=== PATIENT | male | born 1955 | race Caucasian/White ===

== ENCOUNTER 2017-02-12 00:05 | Emergency (ER) | payer MEDICAID ==
[~2017-02-12] VITALS: Ht 162.6 cm; Wt 61.2 kg
[2017-02-12 00:07] VITALS: BP 148/90
--- NOTE | 2017-02-12 00:18 | NUR ---
PATIENT AMBULATED TO ER BED 6.
--- NOTE | 2017-02-12 00:20 | NUR ---
61Y/M PATIENT PRESENTS TO ED WITH C/O LT. ARM ABSCESS X 1 WK . PT STATES SPIDER BIT 1 WK, THEN REDNESS AND SWELLING, NO FEVER.; SKIN IS PINK/WARM/DRY, LT. UPPER ARM SWELLING AND REDNESS; AAOX4 WITH EVEN AND STEADY GAIT; LUNGS CLEAR BL; HR EVEN AND REGULAR; PT DENIES ANY FEVER, CP, SOB, OR COUGH AT THIS TIME; PATIENT STATES PAIN OF 0810 AT THIS TIME; VSS; PATIENT POSITIONED FOR COMFORT; HOB ELEVATED; BEDRAILS UP X2; BED DOWN. ER MD MADE AWARE OF PT STATUS.
--- NOTE | 2017-02-12 00:22 | NUR ---
Patient being evaluated by physician at bedside.
--- NOTE | 2017-02-12 00:22 | NUR ---
DR. DURAN PERFORMS I AND D AT BEDSIDE, 1% XYLOCAINE INJECT SUBCUT 5 ML TO LT. UPPER ARM, NDAR.
--- NOTE | 2017-02-12 00:50 | NUR ---
Patient discharged with v/s stable. Written and verbal after care instructions given and explained. Patient alert, oriented and verbalized understanding of instructions. Ambulatory with steady gait. All questions addressed prior to discharge. ID band removed. Patient advised to follow up with PMD. Rx of KEFLEX 500 MG, MOTRIN 600 MG, BATRIM DS 800/160MG given. Patient educated on indication of medication including possible reaction and side effects. Opportunity to ask questions provided and answered.
[2017-02-12 00:51] VITALS: BP 135/81
== END 2017-02-12 00:50 | disposition home or self-care (01) ==
LOC: MED 00:05
DX: L02.414 Cutaneous abscess of left upper limb (principal); F17.210 Nicotine dependence, cigarettes, uncomplicated
CPT/HCPCS: 99283

== ENCOUNTER 2019-07-12 19:44 | Emergency (ER) | payer MEDICAID ==
[~2019-07-12] VITALS: Ht 154.9 cm; Wt 64.4 kg
[2019-07-12 19:52] VITALS: BP 186/114
[2019-07-12] MEDS ORDERED: KETOROLAC 30 MG/ML VIAL IVP ONE (20:00)
[2019-07-12] MEDS ORDERED: METOPROLOL 5 MG/5 ML VIAL IVP ONE (20:00)
[2019-07-12 20:40] LABS: BASOPHILS % (AUTO) 0.9 % (0.0-2.0); EOSINOPHILS % (AUTO) 0.5 % (0.0-4.0); LYMPHOCYTES # (AUTO) 1.2 K/uL (2.0-11.5); MEAN CORPUSCULAR HEMOGLOBIN 28 pg (27-31); MEAN CORPUSCULAR HGB CONC 33 g/dL (33-37); MEAN CORPUSCULAR VOLUME 86.5 fL (80-94); MONOCYTES # (AUTO) 0.5 K/uL (0.8-1.0); MONOCYTES % (AUTO) 10.8 % (1.7-9.3); NEUTROPHILS # (AUTO) 2.8 K/uL (1.8-7.7); NEUTROPHILS % (AUTO) 61.8 % (42.2-75.2); PLATELET COUNT (AUTO) 227 K/uL (140-450); RED BLOOD CELL COUNT(AUTO) 4.62 MIL/uL (4.20-6.10); RED CELL DISTRIBUTION WIDTH 14.6 % (11.6-13.7); WHITE BLOOD COUNT (AUTO) 4.5 K/uL (4.8-10.8)
[2019-07-12 20:55] LABS: CARBON DIOXIDE 30.2 mmol/L (21-32); POTASSIUM 4.2 mmol/L (3.5-5.1)
[2019-07-12 21:01] LABS: ALBUMIN 3.6 g/dL (3.4-5.0); TOTAL BILIRUBIN 0.3 mg/dL (0.0-1.0)
[2019-07-12 21:54] VITALS: BP 179/87
== END 2019-07-12 22:44 | disposition home or self-care (01) ==
LOC: MED 19:44
DX: I10 Essential (primary) hypertension (principal); F17.210 Nicotine dependence, cigarettes, uncomplicated
CPT/HCPCS: 36415; 80053; 84484; 85025; 96374; 96375; 99283; J1885; J3490

== ENCOUNTER 2020-10-20 19:34 | Emergency (ER) | payer MEDICAID ==
[~2020-10-20] VITALS: Ht 165.1 cm; Wt 68.0 kg
[2020-10-20 20:10] VITALS: BP 185/92
--- NOTE | 2020-10-20 20:13 | NUR ---
TO LOBBY A/W BED AMBULATORY
[2020-10-20] MEDS ORDERED: LIDOCAINE 2% 1000 MG/50 ML VIAL INJ ONE (20:25)
[2020-10-20] MEDS ORDERED: CLONIDINE HYDROCHLORIDE 0.1 MG TAB PO ONE (21:05)
--- NOTE | 2020-10-20 23:00 | NUR ---
ERMD AT BEDSIDE PERFORMING I&D
[2020-10-20 23:45] VITALS: BP 169/92
--- NOTE | 2020-10-20 23:45 | NUR ---
Patient discharged with v/s stable. Written and verbal after care instructions given and explained. Patient alert, oriented and verbalized understanding of instructions. Ambulatory with steady gait. All questions addressed prior to discharge. ID band removed. Patient advised to follow up with PMD. Rx of BACTRIM, AMLODIPINE given. Patient educated on indication of medication including possible reaction and side effects. Opportunity to ask questions provided and answered.
== END 2020-10-20 23:45 | disposition home or self-care (01) ==
LOC: MED 19:34
DX: L02.413 Cutaneous abscess of right upper limb (principal); I10 Essential (primary) hypertension
CPT/HCPCS: 10060; 90471; 90715; 99283; J2001

== ENCOUNTER 2020-12-14 10:39 | Emergency (ER) | payer MEDICAID ==
[~2020-12-14] VITALS: Ht 160 cm; Wt 72.6 kg
[2020-12-14 10:46] VITALS: BP 180/94
--- NOTE | 2020-12-14 10:55 | NUR ---
PATIENT AMBULATED TO BED 8
--- NOTE | 2020-12-14 11:05 | NUR ---
64 YEAR OLD MALE PRESENTED TO ER FOR PRESCRIPTION REFILL; CURRENTLY SEEKING NEW PRIMARY PHYSICIAN. DENIES HEADACHE, CHEST PAIN, SOB. AO4, BREATHING EVEN AND UNLABORED, SKIN WARM AND DRY. BED IN LOWEST POSITION, LOCKED, X1 SIDERAIL UP. PMH - HTN NKA
--- NOTE | 2020-12-14 11:08 | NUR ---
BP 180/94, HR 63. ERMD AWARE.
[2020-12-14 11:36] VITALS: BP 180/94
--- NOTE | 2020-12-14 11:36 | NUR ---
Patient discharged with v/s stable. Written and verbal after care instructions ABOUT HYPERTENSION AND ED MEDICATION REFILL given and explained. Patient alert, oriented and verbalized understanding of instructions. Ambulatory with steady gait. All questions addressed prior to discharge. ID band removed. Patient advised to follow up with PMD. Rx of AMLODIPINE given. Patient educated on indication of medication including possible reaction and side effects. Opportunity to ask questions provided and answered.
== END 2020-12-14 11:36 | disposition home or self-care (01) ==
LOC: MED 10:39
DX: I10 Essential (primary) hypertension (principal); F17.210 Nicotine dependence, cigarettes, uncomplicated; F12.10 Cannabis abuse, uncomplicated; Z76.0 Encounter for issue of repeat prescription; Z71.6 Tobacco abuse counseling
CPT/HCPCS: 99281

== ENCOUNTER 2021-06-13 19:42 | Emergency (ER) | payer MEDICAID ==
[~2021-06-13] VITALS: Ht 162.6 cm; Wt 70.8 kg
[2021-06-13 20:06] VITALS: BP 160/101
--- NOTE | 2021-06-13 20:59 | NUR ---
AMBULATORY TO BED
--- NOTE | 2021-06-13 22:23 | NUR ---
65 YO/M BIB SELF W CO TINY ITCHY ORANGE DOTS THROUGHOUT SCALP X2DAYS. PATIENT DENIES ANY PAIN. SCRATCHES AND PIN POINT SCABS NOTED THROUGHOUT SCALP. DENIES ANY INJURIES. PATIENT SITTING IN BED LOCKED IN LOWEST POSITION, X1 SIDERAIL UP FOR PATIENT SAFETY. BREATHING EVEN AND UNLABORED. WILL CONTINUE TO MONITOR. PMH: HTN, ARTHRITIS NKA
[2021-06-13] MEDS ORDERED: PERM324. MC (22:59)
[2021-06-13 23:50] VITALS: BP 152/96
== END 2021-06-13 23:50 | disposition home or self-care (01) ==
LOC: MED 19:42
DX: B85.0 Pediculosis due to Pediculus humanus capitis (principal); I10 Essential (primary) hypertension; Z79.899 Other long term (current) drug therapy
CPT/HCPCS: 99281

== ENCOUNTER 2021-07-10 09:40 | Emergency (ER) | payer MEDICAID ==
[~2021-07-10] VITALS: Ht 162.6 cm; Wt 72.6 kg
[~2021-07-10 09:40] MED LIST: PERM324. MC
[2021-07-10 09:50] VITALS: BP 216/106
--- NOTE | 2021-07-10 09:55 | NUR ---
PT SENT TO LOBBY TO WAIT FOR AVAILABLE BED OR MSE.
[2021-07-10] MEDS ORDERED: SPIN120S2 TP (10:21)
[2021-07-10 10:37] VITALS: BP 210/105
--- NOTE | 2021-07-10 10:37 | NUR ---
Patient discharged with v/s stable. Written and verbal after care instructions given and explained. Patient alert, oriented and verbalized understanding of instructions. Ambulatory with steady gait. All questions addressed prior to discharge. ID band removed. Patient advised to follow up with PMD. Rx of Spinosad given. Patient educated on indication of medication including possible reaction and side effects. Opportunity to ask questions provided and answered.
== END 2021-07-10 10:37 | disposition home or self-care (01) ==
LOC: MED 09:40
DX: B85.0 Pediculosis due to Pediculus humanus capitis (principal)
CPT/HCPCS: 99283

== ENCOUNTER 2021-09-04 18:09 | Emergency (ER) | payer MEDICAID ==
[~2021-09-04] VITALS: Ht 162.6 cm; Wt 73.5 kg
[~2021-09-04 18:09] MED LIST changes: +SPIN120S2 TP
[2021-09-04 18:16] VITALS: BP 194/91
--- NOTE | 2021-09-04 18:47 | NUR ---
65/M BIB SELF STATING UNABLE TO CLOSE LEFT EYE X YESTERDAY. PATIENT STATES FOR ONE WEEK HE HAD CONSTANT PAIN ON THE BACK OF NECK. PT DENIES PAIN AT THIS TIME. DENIES CHEST PAIN, SOB, DIZZINESS, AMEZCUA, NAUSEA AND VOMITING. EQUAL STRENGHT BILATERAL EXTREMITIES. MILD FACIAL DROOPING TO LEFT SIDE FACE. PT AMBULATED WITH STEADY GAIT. PT ON CARDAIC MONITOR. UNLABORED AND EQUAL RESPIRATIONS. MEDHX: HTN ALLERGIES: DENIES
--- NOTE | 2021-09-04 18:55 | NUR ---
PT TAKEN TO CT
--- NOTE | 2021-09-04 19:15 | NUR ---
GAVE REPORT TO SAHARA WATKINS FOR CONTINUITY OF CARE.
[2021-09-04] MEDS ORDERED: DEXT15DR6 OP (19:31)
[2021-09-04] MEDS ORDERED: PRED20TA5 PO (19:31)
[2021-09-04 19:40] VITALS: BP 194/91
--- NOTE | 2021-09-04 19:40 | NUR ---
Patient discharged with v/s stable. Written and verbal after care instructions given and explained. Patient alert, oriented and verbalized understanding of instructions. Ambulatory with steady gait. All questions addressed prior to discharge. ID band removed. Patient advised to follow up with PMD. Rx of DEXTRAN HYPROMELLOSE, PREDNISONE given. Patient educated on indication of medication including possible reaction and side effects. Opportunity to ask questions provided and answered.
== END 2021-09-04 19:40 | disposition home or self-care (01) ==
LOC: MED 18:09
DX: G51.0 Bell's palsy (principal); I10 Essential (primary) hypertension; F17.200 Nicotine dependence, unspecified, uncomplicated
CPT/HCPCS: 70450; 99284

== ENCOUNTER 2021-09-26 05:12 | Emergency (ER) | payer MEDICAID ==
[~2021-09-26] VITALS: Ht 147.3 cm; Wt 71.7 kg
[~2021-09-26 05:12] MED LIST changes: +DEXT15DR6 OP; +PRED20TA5 PO
[2021-09-26 05:14] VITALS: BP 150/90
--- NOTE | 2021-09-26 05:14 | NUR ---
to bed ambulatory
--- NOTE | 2021-09-26 05:16 | NUR ---
seen and examined by mick
[2021-09-26] MEDS ORDERED: BENC TP (05:21)
[2021-09-26 05:27] VITALS: BP 150/90
--- NOTE | 2021-09-26 05:27 | NUR ---
Patient discharged with v/s stable. Written and verbal after care instructions given and explained. Patient alert, oriented and verbalized understanding of instructions. Ambulatory with steady gait. All questions addressed prior to discharge. ID band removed. Patient advised to follow up with PMD. Rx of benadryl itch stopping cream given. Patient educated on indication of medication including possible reaction and side effects. Opportunity to ask questions provided and answered.
== END 2021-09-26 05:27 | disposition home or self-care (01) ==
LOC: MED 05:12
DX: L30.9 Dermatitis, unspecified (principal); I10 Essential (primary) hypertension; Z79.899 Other long term (current) drug therapy
CPT/HCPCS: 99283

== ENCOUNTER 2022-04-04 07:15 | Emergency (ER) | payer MEDICARE, MEDICAID ==
[~2022-04-04] VITALS: Ht 162.6 cm; Wt 76.2 kg
[~2022-04-04 07:15] MED LIST changes: +BENC TP
[2022-04-04 07:20] VITALS: BP 132/96
--- NOTE | 2022-04-04 07:26 | NUR ---
66/M PRESENTS TO ED WITH C/O CHRONIC BACK PAIN, STATES PCP GAVE RX OF UNKNOWN PAIN MEDICATION BUT REPORTS NO RELIEF. PATIENT ALSO C/O CHRONIC MOUTH PAIN AND FACE SWELLING D/T CRACKED TEETH, STATES "I DONT TAKE CARE OF MY TEETH." PATIENT STATES HE HAS BEEN UNABLE TO FIND A DENTIST. PATIENT LEFT FACE APPEARS SLIGHTLY SWOLLEN, NO SIGNS OF RESPIRATORY DISTRESS. DENIES TAKING MEDICATION TODAY FOR PAIN.
[2022-04-04] MEDS ORDERED: KETOROLAC 60 MG/2 ML VIAL IM ONE (07:55)
[2022-04-04] MEDS ORDERED: NAPR-1704 PO (07:57)
[2022-04-04] MEDS ORDERED: CARI350T PO (07:57)
[2022-04-04] MEDS ORDERED: TRAM50TA1 PO (07:57)
--- NOTE | 2022-04-04 08:45 | NUR ---
Patient discharged with v/s stable. Written and verbal after care instructions FOR ACUTE BACK PAIN given and explained. Patient alert, oriented and verbalized understanding of instructions. Ambulatory with steady gait. All questions addressed prior to discharge. ID band removed. Patient advised to follow up with PMD. Rx of SOMA , NAPROSYN, AND ULTRAM given. Opportunity to ask questions provided and answered.
--- NOTE | 2022-04-04 08:46 | NUR ---
Chart checked and completed. The patient's care was reviewed and supervised by Court Hampton RN.
== END 2022-04-04 08:45 | disposition home or self-care (01) ==
LOC: MED 07:15
DX: M54.50 Low back pain, unspecified (principal); I10 Essential (primary) hypertension; Z79.899 Other long term (current) drug therapy; Z79.1 Long term (current) use of non-steroidal anti-inflammatories (NSAID); Z79.891 Long term (current) use of opiate analgesic
CPT/HCPCS: 96372; 99283; J1885

== ENCOUNTER 2022-07-29 10:36 | Emergency (ER) | payer MEDICARE, MEDICAID ==
[~2022-07-29] VITALS: Ht 157.5 cm; Wt 70.3 kg
[~2022-07-29 10:36] MED LIST changes: +CARI350T PO; +NAPR-1704 PO; +TRAM50TA1 PO
--- NOTE | 2022-07-29 10:43 | NUR ---
PT DECIDED TO NOT BE SEEN AND LEFT ER
[2022-07-29 10:47] VITALS: BP 149/88
--- NOTE | 2022-07-29 13:17 | NUR ---
Patient discharged with v/s stable. Written and verbal after care instructions given and explained. Patient verbalized understanding. Ambulatory with steady gait. All questions addressed prior to discharge. Advised to follow up with PMD.
== END 2022-07-29 13:17 | disposition home or self-care (01) ==
LOC: MED 10:36
DX: I10 Essential (primary) hypertension (principal); Z79.899 Other long term (current) drug therapy
CPT/HCPCS: 99281